=== PATIENT | male | born 1960 | race Caucasian/White ===

== ENCOUNTER 2017-08-30 16:10 | Emergency (ER) | payer SELFPAY ==
[2017-08-30] MEDS ORDERED: FUL-GLO OP ONE (18:56)
[2017-08-30] MEDS ORDERED: BOOSTRIX IM ONE (18:58)
--- NOTE | 2017-08-30 19:01 | Emergency Department Report ---
Eye Injury/Foreign Body - HPI Eye Location: Right Severity: Moderate Tetanus Status: Not up to Date Eye Symptoms: Eye Pain: Yes, Blurred Vision: No, Eye Redness: Yes, Grinding/ Hammering Metal: No (cutting wood), Used Eye Protection: Yes, Contact Lens Use: No, Recalls Injury: Yes, Photophobia: No ED Review of Systems ROS: Stated complaint: RIGHT EYE PAIN Other details as noted in HPI Constitutional: denies: chills, fever Eyes: eye pain, eye discharge (clear tearing ), other (wood chip to eye yesterday ). denies: vision change ENT: denies: ear pain, throat pain Respiratory: denies: cough, shortness of breath, wheezing Cardiovascular: denies: chest pain, palpitations Endocrine: no symptoms reported Gastrointestinal: denies: abdominal pain, nausea, diarrhea Genitourinary: denies: urgency, dysuria Musculoskeletal: denies: back pain, joint swelling, arthralgia Skin: denies: rash, lesions Neurological: denies: headache, weakness, paresthesias Psychiatric: as per HPI Hematological/Lymphatic: denies: easy bleeding, easy bruising ED Past Medical Hx - Past Medical History Previous Medical History?: No - Surgical History Past Surgical History?: No - Social History Smoking Status: Current Every Day Smoker - Medications Home Medications: Home Medications Medication Instructions Recorded Confirmed Last Taken Type Cetirizine HCl [ZyrTEC] 10 mg PO DAILY #30 capsule 08/30/17 Unknown Rx Ibuprofen [Motrin 800 MG tab] 800 mg PO Q8HR PRN #30 tablet 08/30/17 Unknown Rx Polymyxin B Sulf/Trimethoprim 10 ml OP QID #1 bottle 08/30/17 Unknown Rx [Polytrim Eye Drops] Eye Injury Exam - Exam General: Vital signs noted. No distress. Alert and acting appropriately. - Visual Acuity Bilateral Vision Acuity Degree: 20/20 Eye Exam: Right Injection, Right Eye Foreign Body, Both EOMI, Neither Lid Foreign Body, Neither Mucous Discharge, Neither Purulent Discharge, Neither Corneal Edema, Neither Photophobia Left Vision Acuity Degree: 20/20 Right Vision Acuity Degree: 20/20 ED Course Vital Signs 08/30/17 16:42 Temperature 98.2 F Pulse Rate 92 H Respiratory 18 Rate Blood Pressure 109/78 O2 Sat by Pulse 98 Oximetry - Eye Procedure Alcaine Drops Administered: No (tetracaine) Eye FB Removal: removal w/ cotton swab, other (irrigated ns 30 cc ) Eye Irrigated w/ Saline (ccs): 30 Cyclogel 2 Drops Administered: right eye Antibiotic Oinment/Drps Admin: right eye Progress: wood chip small less than 1 cm removed intact , eye anesthesia with tetracaine eye drops, fluorescein, pineda lamp exam foreign body removed intact via cotton swap, r eye irrigated with sterile saline x 30 cc, exam: is perrla eomi, conjunctivae injected, pt tolerated procedure with minimal distress. ED Medical Decision Making - Medical Decision Making tp is a 57 y/o aam who presented for wood chip right eye x yesterday pt advise was cutting wood and wood chip flew into his eye, there is no change or decrease in vision visual acuity is 20/20 bilat no blurred vision , there is no swelling no pus, no headache Critical care attestation.: If time is entered above; I have spent that time in minutes in the direct care of this critically ill patient, excluding procedure time. ED Disposition Clinical Impression: Foreign body of eyelid, right Disposition: [id number] TO HOME OR SELFCARE Is pt being admited?: No Does the pt Need Aspirin: No Condition: Good Instructions: Conjunctivitis (ED), Eye Foreign Body (ED) Additional Instructions: follow up with opthalmolgy [phone] Prescriptions: Cetirizine HCl [ZyrTEC] 10 mg PO DAILY #30 capsule Ibuprofen [Motrin 800 MG tab] 800 mg PO Q8HR PRN #30 tablet PRN Reason: Pain Polymyxin B Sulf/Trimethoprim [Polytrim Eye Drops] 10 ml OP QID #1 bottle Referrals: PRIMARY CARE, [Primary Care Provider] - 3-5 Days Forms: Work/School Release Form(ED) Time of Disposition: 19:47
[2017-08-30] MEDS ORDERED: TETRACAINE 0.5% OU ONE (19:02)
[2017-08-30 20:02] VITALS: BP 115/75
== END 2017-08-30 20:00 | disposition home or self-care (01) ==
LOC: ED 16:10
DX: T15.11XA Foreign body in conjunctival sac, right eye, initial encounter (principal); F17.210 Nicotine dependence, cigarettes, uncomplicated; X58.XXXA Exposure to other specified factors, initial encounter; Y93.89 Activity, other specified; Y92.89 Other specified places as the place of occurrence of the external cause; Y99.8 Other external cause status
CPT/HCPCS: 90471; 90715; 99283